=== PATIENT | male | born 1985 | race Asian ===

== ENCOUNTER 2018-12-21 22:49 | Emergency (ER) | payer MEDICAID, OTHER ==
[~2018-12-21] VITALS: Ht 175.3 cm; Wt 80.0 kg
[~2018-12-21 22:49] MED LIST: AMOX1TAB10 PO; SULF15DR19 BOTH EYES; SULF15DR19 LEFT EYE; SULF5DRO17 BOTH EYES
[2018-12-21 22:51] VITALS: BP 147/91; PULSE 111; RESP 16; Ht 175.3 cm; Wt 80.0 kg
[2018-12-22] MEDS ORDERED: ERYTHROMYCIN 1 GM OPH OINT BOTH EYES ONE
[2018-12-22] MEDS ORDERED: AMOXICILLIN/CLAV 875 MG TAB PO ONE
== END 2018-12-22 00:46 | disposition home or self-care (01) ==
LOC: FTE 22:49
DX: H01.001 Unspecified blepharitis right upper eyelid (principal); H10.9 Unspecified conjunctivitis
CPT/HCPCS: Z7502; Z7610; 99283